=== PATIENT | male | born 1985 | race Caucasian/White ===

== ENCOUNTER 2021-12-17 16:37 | Inpatient (IN) | payer BC, SELFPAY ==
[2021-12-17] VITALS (39 sets, daily range): BP systolic 129–250; BP diastolic 93–174; PULSE 76–102; RESP 16–18; TEMP 36.3–36.8; O2SAT 94–99; BMI 34.5; BMI 34.7
--- NOTE | 2021-12-17 17:03 | ED.GENADULT ---
HPI - General Adult General Time Seen by Provider: 17:04 Date Seen: 12/17/21 Chief complaint: Eye Problems Stated complaint: Blurry Vision Time Seen by Provider: 12/17/21 17:01 Source: patient, RN notes reviewed and other (Records from caustic liquor maker reviewed) Mode of arrival: ambulatory Limitations: no limitations History of Present Illness HPI narrative: Yung is a very pleasant 36-year-old gentleman coming in to the ER with concerns of a hemorrhages seen at an optometry visit. He did a virtual optometry visit. He states there was a person there that takes the test and then the caustic liquor maker online reviews the images. He has been having blurry vision for about a month. He states that he can still read but things are just fuzzy and somewhat out of focus. He believes his left eye is worse than his right. He maybe had some occasional headaches. No double vision. Arms and legs have been working normally, no other neurologic changes. Does note that he feels like his heart is beating heavy at times but no chest pain. No shortness of breath. No noted edema. 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 He states there is high blood pressure in the family, grandmother with diabetes. He has been urinating more frequently. Cannot give me any other specific physical symptoms. Related Data Home Medications Medication Instructions Recorded Confirmed No Known Home Medications 12/17/21 12/17/21 Allergies Allergy/AdvReac Type Severity Reaction Status Date / Time No Known Drug Allergies Allergy Verified 12/17/21 16:52 Review of Systems Status of ROS: Reports: 10 or more systems reviewed and unremarkable except as noted in History and below Exam Const: Vital Signs, click to edit/add: Vital Signs - 24 hr 12/17/21 16:42 12/17/21 17:18 12/17/21 17:21 Temperature 98.3 F Pulse Rate Pulse Rate [Right Pulse Oximeter] 102 H 95 92 Respiratory Rate 16 16 Blood Pressure Blood Pressure [Ri ght Upper Arm] 250/164 H 250/174 H 233/167 H Pulse Oximetry 98 97 97 Oxygen Delivery Me thod Room Air Room Air Room Air 12/17/21 18:18 12/17/21 18:19 12/17/21 18:24 Temperature Pulse Rate 90 86 87 Pulse Rate [Right Pulse Oximeter] Respiratory Rate Blood Pressure 246/158 H 234/152 H Blood Pressure [Ri ght Upper Arm] Pulse Oximetry 98 97 97 Oxygen Delivery Me thod 12/17/21 18:27 12/17/21 18:30 12/17/21 18:32 Temperature Pulse Rate 85 82 85 Pulse Rate [Right Pulse Oximeter] Respiratory Rate Blood Pressure 224/163 H 215/155 H Blood Pressure [Ri ght Upper Arm] Pulse Oximetry 94 96 95 Oxygen Delivery Me thod 12/17/21 18:33 12/17/21 18:42 12/17/21 18:45 Temperature Pulse Rate 82 83 84 Pulse Rate [Right Pulse Oximeter] Respiratory Rate Blood Pressure 196/136 H Blood Pressure [Ri ght Upper Arm] Pulse Oximetry 97 95 98 Oxygen Delivery Me thod 12/17/21 18:52 12/17/21 18:57 12/17/21 19:00 Temperature Pulse Rate 83 84 82 Pulse Rate [Right Pulse Oximeter] Respiratory Rate Blood Pressure 184/123 H 129/93 H Blood Pressure [Ri ght Upper Arm] Pulse Oximetry 94 99 99 Oxygen Delivery Me thod 12/17/21 19:01 12/17/21 19:02 12/17/21 19:12 Temperature Pulse Rate 81 76 88 Pulse Rate [Right Pulse Oximeter] Respiratory Rate Blood Pressure 133/98 H 148/109 H Blood Pressure [Ri ght Upper Arm] Pulse Oximetry 99 98 99 Oxygen Delivery Me thod 12/17/21 19:15 12/17/21 19:30 12/17/21 19:33 Temperature Pulse Rate 89 86 83 Pulse Rate [Right Pulse Oximeter] Respiratory Rate Blood Pressure 238/156 H Blood Pressure [Ri ght Upper Arm] Pulse Oximetry 97 96 97 Oxygen Delivery Me thod 12/17/21 19:42 12/17/21 19:43 12/17/21 19:45 Temperature Pulse Rate 90 88 87 Pulse Rate [Right Pulse Oximeter] Respiratory Rate Blood Pressure 225/160 H Blood Pressure [Ri ght Upper Arm] Pulse Oximetry 97 97 98 Oxygen Delivery Me thod Documenting provider has reviewed patient's vital signs: yes Common normals: no apparent distress, oriented x3, no limitations, healthy appearing, alert and well nourished General appearance: cooperative, comfortable and well kempt Nutritional appearance: overweight HENMT: Common normals: normocephalic, head/scalp atraumatic, hearing grossly normal bilaterally, external ears normal, EAC's normal, TM's normal bilaterally, external nose normal, nasal mucous membranes and turbinates normal, moist oral mucous membranes, oropharynx normal, dentition normal and gingiva normal Head and scalp: normocephalic and atraumatic Nose: external nose normal and nasal mucous membranes and turbinates normal External ear: external ears normal External auditory canal: EAC's normal Tympanic membrane: TM's normal bilaterally Eye: Common normals: PERRL, EOMs intact bilaterally, conjunctivae normal, no scleral icterus and normal visual rodgers by confrontation Conjunctiva: conjunctiva(e) normal Pupil: PERRL Neck & C-Spine: Common normals: full ROM, no lymphadenopathy, supple, no meningeal signs, no JVD and thyroid normal Thyroid: thyroid normal Resp: Common normals: normal respiratory effort, no retractions, no use of accessory muscles and clear to auscultation bilaterally Auscultation: clear to auscultation bilaterally Cardio: Common normals: no JVD, regular rate, regular rhythm, S1 normal heart sound, S2 normal heart sound, no gallops, no clicks and no murmurs Rate: regular rate Rhythm: regular rhythm Heart sounds: S1 normal and S2 normal GI: Common normals: Normal to inspection, nondistended, normoactive bowel sounds present, soft to palpation, non-tender and no hepatosplenomegaly Palpation: soft and no hepatosplenomegaly Neuro: Common normals: oriented x3, CN's II-XII intact bilaterally, moves all extremities, no focal motor deficits, no sensory deficits noted and gait normal Sensorium/orientation: alert Meningeal signs: no meningeal signs Speech: speech normal Psych: Appearance: well kempt Course Course Hospital Course: First, will have nursing staff recheck his blood pressure. He states he is not feeling stressed but did review with him that there certainly can be a component of elevation when we see patients in the ER. I do request that we work up his high blood pressure and he is in agreement. We will get an EKG, appropriate labs with comprehensive metabolic panel, CBC, urinalysis. His eye symptoms are bilateral and are not neurologic in nature so to speak. Will try to talk to the on-call caustic liquor maker briefly. Reevaluation(s) Reevaluation #1: Recheck blood pressure maintains high at 233/167. Thus, am going to initiate IV labetalol 5 mg. Will await his workup. Time: 17:33 Reevaluation #2: Did order a 2nd dose of labetalol 5 mg IV as blood pressure is still 230/160 range. Time: 18:36 Reevaluation #3: Blood pressure is rebounded back up, 238/156 at 7:30 a.m., 225/160 at 7:39 p.m.. Will initiate 10 mg oral hydralazine and give 2.5 mg IV labetalol. Have confirmed this with the hospitalist Dr. Young whom will be accepting care. Time: 19:43 Consultations Consultation #1: Reviewed case with the on-call caustic liquor maker with [facility]. She stated the hemorrhages described in the virtual note are nearly pathognomonic for eye diabetic symptoms. Thus, not only with will I obtain his glucose but will also do a lab add on for hemoglobin A1c. She has taken down his contact information and they will get him scheduled outpatient for follow-up. Time: 17:30 Consultation #2: Called [facility] and spoke with triage nurse [place]. She page nephrology for consultation for me. Spoke with Dr. Chavis from Nephrology at 6:47 p.m.. Reviewed the case. He agrees that this is likely renal cause, secondary hypertension but patient has end-organ damage. He felt the patient should probably be admitted to the ICU for IV drip control of his blood pressure. [place] then paged the critical care officer of the day Dr. De Dios. I spoke with him at 7:06 p.m.. At that time, about 15 minutes after the 2nd IV dose of 5 mg labetalol, blood pressure was 129/93 and 133/98, learned this while I was on the phone with the barrel brander. Knowing the blood pressure came down quite significantly, he feels that the patient should be admitted to the floor here. We did review the elevated creatinine, proteinuria and elevated troponin. I will be getting a 2nd troponin and EKG here. He recommended a goal of systolic less than 180. Oral medicines can be initiated he would consider hydralazine and beta-qi. Obviously patient is going to need outpatient nephrology workup. If we are having problems with this patient or blood pressures becoming problematic we are to call them back. We have ultrasound in this evening and thus will do the renal ultrasound tonight. Patient understands he may need an echo tomorrow. I have subsequently ordered a screening COVID as well as a portable chest x-ray. His mom was with him when I went to explain all of this. This is certainly a lot for them to take in. I reviewed with them that we really need to have him see Nephrology, reviewed with them to not expect that to happen quickly, it will probably be on the order of weeks. If it is quicker, that will be fortuitous. Tried to answer their questions and review everything is best I could. They understand he is coming into the hospital here and that nephrology will not be seen in our hospital here. Time: 18:38 Vital Signs Vital signs: Initial Vital Signs Temperature 98.3 F 12/17/21 16:42 Temperature Source Temporal Artery Scan 12/17/21 16:42 Pulse Rate 102 H 12/17/21 16:42 Respiratory Rate 16 12/17/21 16:42 Blood Pressure 250/164 H 12/17/21 16:42 Blood Pressure Mean 192 12/17/21 16:42 Blood Pressure Position Sitting 12/17/21 16:42 Pulse Oximetry 98 12/17/21 16:42 Oxygen Delivery Method 12/17/21 16:42 Vital Signs Temperature 98.3 F 12/17/21 16:42 Pulse Rate 102 H 12/17/21 16:42 Respiratory Rate 16 12/17/21 16:42 Blood Pressure 250/164 H 12/17/21 16:42 Pulse Oximetry 98 12/17/21 16:42 Oxygen Delivery Method 12/17/21 16:42 Temperature 98.3 F 12/17/21 16:42 Pulse Rate 87 12/17/21 19:45 Respiratory Rate 16 12/17/21 17:21 Blood Pressure 225/160 H 12/17/21 19:42 Pulse Oximetry 98 12/17/21 19:45 Oxygen Delivery Method 12/17/21 17:21 Medical Decision Making Medical Records Medical records reviewed: Yes I reviewed the patient's medical records Medical records narrative: Patient's outside optometry visit will be scanned in but his visual acuity OD 20/40 OS 20/30 he is noted to have disc edema and disc hemorrhage bilaterally, retinal hemorrhage and dot blot hemorrhage bilaterally. Please refer to the scanned in exam for full details. Lab Data Lab results reviewed: Yes I reviewed the patient's lab results Labs: Lab Results 12/17/21 12/17/21 12/17/21 Range/Units 17:42 18:00 18:00 WBC 8.81 (4.50-11.00) K/uL RBC 5.00 (4.30-5.90) m/uL Hgb 15.1 (13.5-17.5) gm/dL Hct 42.9 (37.0-53.0) % MCV 86 (80-100) fL MCH 30 (26-34) pg MCHC 35 (32-36) gm/dL RDW Coeff of Avril 12.6 (11.5-15.5) % Plt Count 228 (140-440) K/uL Neut % (Auto) 62.1 (42.0-72.0) % Lymph % (Auto) 29.3 (20-44) % Sabine % (Auto) 7.2 (0.0-11.0) % Eos % (Auto) 0.9 (0.0-7.0) % Baso % (Auto) 0.5 (0.0-3.0) % Neut # (Auto) 5.48 (1.7-7.0) K/uL Lymph # (Auto) 2.58 (0.90-2.90) K/uL Sabine # (Auto) 0.60 (0.00-0.90) K/UL Eos # (Auto) 0.08 (0.00-0.50) K/uL Baso # (Auto) 0.04 (0.00-0.30) K/uL Abs Immat Gran (auto) 0.00 (0.00-0.30) K/uL Sodium 139 (135-149) mmol/L Potassium 3.9 (3.6-5.1) mmol/L Chloride 104 (96-114) mmol/L Carbon Dioxide 27 (20-32) mmol/L BUN 24 (5-24) mg/dL Creatinine 2.0 H (0.5-1.5) mg/dL Estimated Creat Clear 47.74 Estimated GFR 44 ml/min Glucose 108 (60-115) mg/dL Hemoglobin A1c (0-5.6) % Calcium 9.3 (8.4-10.6) mg/dL Total Bilirubin 0.6 (0.1-1.5) mg/dL AST 32 (12-35) U/L ALT 30 (4-50) U/L Alkaline Phosphatase 73 (40-150) U/L Troponin I 0.05 H (0.01-0.04) ng/mL Total Protein 7.7 (6.0-8.3) g/dL Albumin 4.9 (3.3-5.0) g/dL Urine Color Yellow (Yellow) Urine Appearance Clear (Clear) Urine pH 6.0 (5.0-8.5) Ur Specific [place] >= 1.030 (1.000-1.030) Urine Protein 3+ A (Negative) Urine Glucose (UA) Negative (Negative) Urine Ketones Negative (Negative) Urine Blood Trace-lysed A (Negative) Urine Nitrite Negative (Negative) Urine Bilirubin Negative (Negative) Urine Urobilinogen 0.2 (0.2-1.0) Ur Leukocyte Esterase Negative (Negative) Urine RBC 0-2 (0-2) Urine WBC 0-2 (0-5) Ur Squamous Epith Cells None (None-Few) Urine Bacteria None (None) Fine Granular Casts Few A (None) 12/17/21 12/17/21 Range/Units 18:00 19:37 WBC (4.50-11.00) K/uL RBC (4.30-5.90) m/uL Hgb (13.5-17.5) gm/dL Hct (37.0-53.0) % MCV (80-100) fL MCH (26-34) pg MCHC (32-36) gm/dL RDW Coeff of Avril (11.5-15.5) % Plt Count (140-440) K/uL Neut % (Auto) (42.0-72.0) % Lymph % (Auto) (20-44) % Sabine % (Auto) (0.0-11.0) % Eos % (Auto) (0.0-7.0) % Baso % (Auto) (0.0-3.0) % Neut # (Auto) (1.7-7.0) K/uL Lymph # (Auto) (0.90-2.90) K/uL Sabine # (Auto) (0.00-0.90) K/UL Eos # (Auto) (0.00-0.50) K/uL Baso # (Auto) (0.00-0.30) K/uL Abs Immat Gran (auto) (0.00-0.30) K/uL Sodium (135-149) mmol/L Potassium (3.6-5.1) mmol/L Chloride (96-114) mmol/L Carbon Dioxide (20-32) mmol/L BUN (5-24) mg/dL Creatinine (0.5-1.5) mg/dL Estimated Creat Clear Estimated GFR ml/min Glucose (60-115) mg/dL Hemoglobin A1c 5.31 (0-5.6) % Calcium (8.4-10.6) mg/dL Total Bilirubin (0.1-1.5) mg/dL AST (12-35) U/L ALT (4-50) U/L Alkaline Phosphatase (40-150) U/L Troponin I 0.06 H* (0.01-0.04) ng/mL Total Protein (6.0-8.3) g/dL Albumin (3.3-5.0) g/dL Urine Color (Yellow) Urine Appearance (Clear) Urine pH (5.0-8.5) Ur Specific [place] (1.000-1.030) Urine Protein (Negative) Urine Glucose (UA) (Negative) Urine Ketones (Negative) Urine Blood (Negative) Urine Nitrite (Negative) Urine Bilirubin (Negative) Urine Urobilinogen (0.2-1.0) Ur Leukocyte Esterase (Negative) Urine RBC (0-2) Urine WBC (0-5) Ur Squamous Epith Cells (None-Few) Urine Bacteria (None) Fine Granular Casts (None) ECG Data Attestation: I personally reviewed and interpreted this ECG as follows: (Sinus rhythm, 100 beats per minute, prolonged QT of 500 milliseconds. Left atrial enlargement based on the 1 with inverted P wave.) Prior ECG tracings: not available for review Interpretation: EKG timed 1926 showing normal sinus rhythm, 87 beats per minute, left atrial enlargement., QT at 464 milliseconds. No definitive ischemic change. Critical Care Time Critical Care Time Critical Care Time: Yes Attestation: The patient required my highest level preparedness to intervene emergently and I personally spent this critical care time directly and personally managing the patient. This critical care time included: Obtaining a history; Examining the patient; Pulse oximetry; Ordering and reviewing of studies; Arranging urgent treatment with development of a management plan; Evaluation of patients response to treatment; Frequent reassessment discussions with other providers. This critical care time was performed to assess and manage the high probability of imminent life-threatening deterioration that could result in multiorgan failure. It was exclusive of separate billable procedures and treating other patients and teaching time. Total Critical Care Time in Minutes: 210 Discharge Plan Discharge Clinical Impression: Hypertensive emergency without congestive heart failure, Creatinine elevation, Elevated troponin I level, Proteinuria Patient Disposition: Admitted As Inpatient Condition: Improved Prescriptions: No Action No Known Home Medications
[2021-12-17 17:46] LABS: Appearance Urine Clear (Clear); Bilirubin Urine Negative (Negative); Blood Urine Trace-lysed (Negative); Color Urine Yellow (Yellow); Glucose Urine Negative (Negative); Ketones Urine Negative (Negative); Leukocyte Esterase Urine Negative (Negative); Nitrite Urine Negative (Negative); Protein Urine 3+ (Negative); Specific Gravity Urine >= 1.030 (1.000-1.030); Urobilinogen Urine 0.2 (0.2-1.0)
[2021-12-17 17:54] LABS: Fine Granular Casts Urine Few; RBC Urine 0-2 (0-2); WBC Urine 0-2 (0-5)
[2021-12-17 18:06] LABS: Basophils Absolute Auto 0.04 K/uL (0.00-0.30); Basophils Percent Auto 0.5 % (0.0-3.0); Eosinophils Absolute Auto 0.08 K/uL (0.00-0.50); Eosinophils Percent Auto 0.9 % (0.0-7.0); Hematocrit 42.9 % (37.0-53.0); Hemoglobin* 15.1 gm/dL (13.5-17.5); Lymphocytes Absolute Auto 2.58 K/uL (0.90-2.90); Lymphocytes Percent Auto 29.3 % (20-44); Mean Corpuscular HGB Conc 35 gm/dL (32-36); Mean Corpuscular Hemoglobin 30 pg (26-34); Mean Corpuscular Volume 86 fL (80-100); Monocytes Percent Auto 7.2 % (0.0-11.0); Neutrophils Absolute Auto 5.48 K/uL (1.7-7.0); Neutrophils Percent Auto 62.1 % (42.0-72.0); Platelet Count* 228 K/uL (140-440); RDW Coefficient of Variation % 12.6 % (11.5-15.5); Slide Review Reflex No; White Blood Count* 8.81 K/uL (4.50-11.00)
[2021-12-17] MEDS: LABETALOL HCL 5 MG/ML inj IVP ×2 (18:11→18:44)
[2021-12-17 18:18] LABS: Albumin* 4.9 g/dL (3.3-5.0); Chloride* 104 mmol/L (96-114)
[2021-12-17 18:19] LABS: Potassium* 3.9 mmol/L (3.6-5.1); Sodium* 139 mmol/L (135-149)
[2021-12-17 18:21] LABS: Alanine Aminotransferase* 30 U/L (4-50); Alkaline Phosphatase* 73 U/L (40-150); Aspartate Amino Transferase* 32 U/L (12-35); Bilirubin Total* 0.6 mg/dL (0.1-1.5); Blood Urea Nitrogen* 24 mg/dL (5-24); Carbon Dioxide* 27 mmol/L (20-32); Est. Creatinine Clearance* 47.74; Estimated Glomerular Filt Rate 44 ml/min; Glucose* 108 mg/dL (60-115); Total Protein* 7.7 g/dL (6.0-8.3)
[2021-12-17 18:22] LABS: Calcium* 9.3 mg/dL (8.4-10.6)
[2021-12-17 18:34] LABS: Troponin I* 0.05 ng/mL (0.01-0.04)
[2021-12-17 18:44] LABS: Hemoglobin A1C* 5.31 % (0-5.6)
--- NOTE | 2021-12-17 19:33 | CRLHL7_ITS ---
For Patients: As a result of the Cures Act, medical imaging exams and procedure reports are released immediately into your electronic medical record. You may view this report before your referring provider. If you have questions, please contact your health care provider. INDICATION: Hypertension with and organ damage. TECHNIQUE: Chest 1 view(s) COMPARISON: None. FINDINGS: Cardiomediastinal silhouette and pulmonary vasculature are normal. No focal consolidation. No significant layering pleural effusion, no definite pneumothorax. No acute chest wall abnormality. IMPRESSION: No focal consolidation. Dictated by Andrea Mclean MD @ 12/17/2021 9:14:38 PM (Electronically Signed)
--- NOTE | 2021-12-17 19:45 | CRLHL7_ITS ---
For Patients: As a result of the Century Cures Act, medical imaging exams and procedure reports are released immediately into your electronic medical record. You may view this report before your referring provider. If you have questions, please contact your health care provider. INDICATION: Elevated creatinine. TECHNIQUE: Ultrasound renal and bladder complete. Warren-scale and color Doppler sonographic images were acquired of the kidneys and urinary bladder. COMPARISON: None. FINDINGS: Right kidney: 9.5 cm. Left kidney: 10.3 cm. Normal echotexture and cortex. No suspicious masses, stones, or hydronephrosis. Bladder: Normal in caliber and appearance. Possible debris. Color Doppler images demonstrate bilateral ureteral jets. IMPRESSION: No renal stones or hydronephrosis, as questioned. Possible debris in the bladder which can be seen in urinary tract infection. Recommend correlation with urinalysis. Dictated by Rodney Mistry MD @ 12/17/2021 9:33:02 PM (Electronically Signed)
[2021-12-17 20:10] LABS: Troponin I* 0.06 ng/mL (0.01-0.04)
[2021-12-17] MEDS: LABETALOL HCL 5 MG/ML inj 2.5 MG IVP (20:15)
[2021-12-17] MEDS: HYDRALAZINE 10 MG TABLET PO (20:15)
[2021-12-17 20:20] LABS: SARS PCR* Negative SARS-CoV-2 (Negative)
--- NOTE | 2021-12-17 20:25 | W.PC.EDHO ---
Primary Language: Bulgarian Preferred Language: Orientation Status: [x] Alert & Oriented [] Slight Confusion [] Known Dx Dementia Transfers By: [x] Assist of 1 [] Assist of 2 [] Lift Active Medications Discontinued Medications Generic Name Dose Route Start Last Admin Trade Name Merry PRN Reason Stop Dose Admin Hydralazine HCl 10 mg 12/17/21 19:42 12/17/21 20:15 Hydralazine 10 Mg Tablet PO 12/17/21 19:43 10 mg ONCE ONE Administration Labetalol HCl 5 mg 12/17/21 17:28 12/17/21 18:11 Labetalol Hcl 5 Mg/Ml Inj IVP 12/17/21 17:29 5 mg ONCE ONE Administration Labetalol HCl 5 mg 12/17/21 18:36 12/17/21 18:44 Labetalol Hcl 5 Mg/Ml Inj IVP 12/17/21 18:37 5 mg ONCE ONE Administration Labetalol HCl 2.5 mg 12/17/21 19:40 12/17/21 20:15 Labetalol Hcl 5 Mg/Ml Inj IVP 12/17/21 19:41 2.5 mg ONCE ONE Administration Description of Symptoms ED Triage Present Problem patient went to the eye MD and discovered a Description hemorrhage in one of the eyes, blurred vision patient stated out of both. 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 ED Triage Date of Onset of 12/17/21 Symptoms Pain Pain Description [Upper Eye] Acute Pain Intensity [Upper Eye] 4 Pain Scale Used [Upper Eye] Numeric (1 - 10) IV Insertion/Site Date of IV Line Insertion [ 12/17/21 Right Hand] Oxygen Administration Pulse Oximetry 98 Pulse Oximetry 97 Pulse Oximetry 97 Pulse Oximetry 97 Pulse Oximetry 96 Pulse Oximetry 97 Pulse Oximetry 99 Pulse Oximetry 98 Pulse Oximetry 99 Pulse Oximetry 99 Pulse Oximetry 99 Pulse Oximetry 94 Pulse Oximetry 98 Pulse Oximetry 95 Pulse Oximetry 97 Pulse Oximetry 95 Pulse Oximetry 96 Pulse Oximetry 94 Pulse Oximetry 97 Pulse Oximetry 97 Pulse Oximetry 98 Pulse Oximetry 97 Pulse Oximetry 97 Pulse Oximetry 98 Oxygen Delivery Method Room Air Oxygen Delivery Method Room Air Oxygen Delivery Method Room Air Cardiac Monitoring EKG Method 12 Lead EKG Method 12 Lead
--- NOTE | 2021-12-17 21:03 | PM.IMHP1 ---
Hospitalist- H&P: HPI History of Present Illness Date Seen: 12/17/21 Chief complaint: Blurry Vision Narrative: Yung Law is a 36 year old male presenting for evaluation of hypertensive urgency. The patient states he has history of HTN but not on antihypertensives. He presented to ED today for evaluation of headache and blurry vision. He was seen by Optometry earlier and noted to have possible retinal hemorrhage. He denied chest pain, sob, nausea, vomiting, abdominal pain. Denies illicit drug use. In the ED his SBP was noted to be in 250s. ED workup revealed: EKG showed NSR, initial trop 0.05, repeat 0.06. Notable labs included Cr 2.0. Renal US showed No renal stones or hydronephrosis, as questioned. Possible debris in the bladder which can be seen in urinary tract infection. Recommend correlation with urinalysis. CXR showed no acute findings. His case was discussed with Nephrology. He was started on hydralazine and labetalol and admitted for further evaluation. The patient endorses 3-4 beers per night. He denies use of NSAIDs. PMHx Patient Active Problem List Diagnoses Code ? ADD (Attention Deficit Disorder) 314.00R ? PAST MEDICAL HISTORY:Past Medical History Diagnosis Date ? ADD (Attention Deficit Disorder) 04/16/2008 ? ? Last treated in 2002 ? ? SURGICAL HISTORY: Past Surgical History Procedure Date ? No previous surgery ? SOCIAL HISTORY:History Social History ? Marital Status: Single ? ? Spouse Name: N/A ? ? Number of Children: 0 ? 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 Social History Main Topics ? Smoking status: Never Smoker ? Smokeless tobacco: Never Used ? Alcohol Use: 2.5 oz/week ? ? 5 drink(s) per week ? Drug Use: No ? Sexually Active: Yes -- Female partner(s) Other Topics Concern ? Service No ? Blood Transfusions No ? Caffeine Concern No ? Occupational Exposure No ? Hobby Hazards No ? Sleep Concern Yes ? Stress Concern No ? Special Diet No ? Back Care No ? Exercise Yes ? ? jogging 2 miles 3x weekly, wts ? Seat Belt Yes Social History Narrative ? No narrative on file ? FAMILY HISTORY:Family History Problem Relation Age of Onset ? Good Health Mother ? ? Good Health Father ? ? Good Health Sister ? ? Heart Disease Paternal Grandfather ? ? Stroke Maternal Grandfather ? ? Review of Systems Status of ROS: Reports: 10 or more systems reviewed and unremarkable except as noted in History and below PFSH PFSH Social History Highest level of school completed/degree received: high school graduate Smoking Status: Never smoker Do you use any of these nicotine containing products: None Second hand tobacco smoke exposure: No How often do you have a drink containing alcohol: 4 or more times a week Alcohol type: beer How many standard drinks containing alcohol do you have on a typical day: 3 or 4 How often do you have six or more drinks on one occasion: Less than monthly AUDIT-C Alcohol total score: 6 Non-prescribed substance use: denies use Caffeine: Yes (20 oz coffee) service: No Meds Home Medications and Allergies Home Medications Medication Instructions Recorded Confirmed Type No Known Home Medications 12/17/21 12/17/21 History Allergies Allergy/AdvReac Type Severity Reaction Status Date / Time No Known Drug Allergies Allergy Verified 12/17/21 16:52 Exam Narrative: Exam Narrative: Gen: No acute distress HEENT: NCAT EOMI MMM Neck: Supple CV: Tachycardic; normal s1 s2 LCTAB Abd: soft, nt, nd Neuro: AOX3, CN grossly intact, MSK: age appropriate muscle mass Skin: warm, dry no rash on face Const: Vital Signs, click to edit/add: Vital Signs - 24 hr 12/17/21 16:42 12/17/21 17:18 12/17/21 17:21 Temperature 98.3 F Pulse Rate Pulse Rate [Right Pulse Oximeter] 102 H 95 92 Respiratory Rate 16 16 Blood Pressure Blood Pressure [Ri ght Upper Arm] 250/164 H 250/174 H 233/167 H Pulse Oximetry 98 97 97 Oxygen Delivery Me thod Room Air Room Air Room Air 12/17/21 18:18 12/17/21 18:19 12/17/21 18:24 Temperature Pulse Rate 90 86 87 Pulse Rate [Right Pulse Oximeter] Respiratory Rate Blood Pressure 246/158 H 234/152 H Blood Pressure [Ri ght Upper Arm] Pulse Oximetry 98 97 97 Oxygen Delivery Me thod 12/17/21 18:27 12/17/21 18:30 12/17/21 18:32 Temperature Pulse Rate 85 82 85 Pulse Rate [Right Pulse Oximeter] Respiratory Rate Blood Pressure 224/163 H 215/155 H Blood Pressure [Ri ght Upper Arm] Pulse Oximetry 94 96 95 Oxygen Delivery Me thod 12/17/21 18:33 12/17/21 18:42 12/17/21 18:45 Temperature Pulse Rate 82 83 84 Pulse Rate [Right Pulse Oximeter] Respiratory Rate Blood Pressure 196/136 H Blood Pressure [Ri ght Upper Arm] Pulse Oximetry 97 95 98 Oxygen Delivery Me thod 12/17/21 18:52 12/17/21 18:57 12/17/21 19:00 Temperature Pulse Rate 83 84 82 Pulse Rate [Right Pulse Oximeter] Respiratory Rate Blood Pressure 184/123 H 129/93 H Blood Pressure [Ri ght Upper Arm] Pulse Oximetry 94 99 99 Oxygen Delivery Me thod 12/17/21 19:01 12/17/21 19:02 12/17/21 19:12 Temperature Pulse Rate 81 76 88 Pulse Rate [Right Pulse Oximeter] Respiratory Rate Blood Pressure 133/98 H 148/109 H Blood Pressure [Ri ght Upper Arm] Pulse Oximetry 99 98 99 Oxygen Delivery Me thod 12/17/21 19:15 12/17/21 19:30 12/17/21 19:33 Temperature Pulse Rate 89 86 83 Pulse Rate [Right Pulse Oximeter] Respiratory Rate Blood Pressure 238/156 H Blood Pressure [Ri ght Upper Arm] Pulse Oximetry 97 96 97 Oxygen Delivery Me thod 12/17/21 19:42 12/17/21 19:43 12/17/21 19:45 Temperature Pulse Rate 90 88 87 Pulse Rate [Right Pulse Oximeter] Respiratory Rate Blood Pressure 225/160 H Blood Pressure [Ri ght Upper Arm] Pulse Oximetry 97 97 98 Oxygen Delivery Me thod 12/17/21 20:00 12/17/21 20:03 12/17/21 20:15 Temperature Pulse Rate 86 84 85 Pulse Rate [Right Pulse Oximeter] Respiratory Rate Blood Pressure 207/134 H Blood Pressure [Ri ght Upper Arm] Pulse Oximetry 97 96 98 Oxygen Delivery Me thod 12/17/21 20:30 12/17/21 20:32 12/17/21 20:33 Temperature Pulse Rate 85 82 85 Pulse Rate [Right Pulse Oximeter] Respiratory Rate Blood Pressure 208/130 H Blood Pressure [Ri ght Upper Arm] Pulse Oximetry 96 97 97 Oxygen Delivery Me thod 12/17/21 20:45 12/17/21 20:47 Temperature Pulse Rate 83 83 Pulse Rate [Right Pulse Oximeter] Respiratory Rate Blood Pressure 210/154 H Blood Pressure [Ri ght Upper Arm] Pulse Oximetry 94 98 Oxygen Delivery [facility] Hospitalist - H&P: Result Labs Labs: Short CBC 12/17/21 Range/Units 18:00 WBC 8.81 (4.50-11.00) K/uL Hgb 15.1 (13.5-17.5) gm/dL Hct 42.9 (37.0-53.0) % Plt Count 228 (140-440) K/uL BMP 12/17/21 18:00 Sodium 139 Potassium 3.9 Chloride 104 Carbon Dioxide 27 BUN 24 Creatinine 2.0 H Glucose 108 Calcium 9.3 Cardiac Enzymes 12/17/21 12/17/21 Range/Units 18:00 19:37 Troponin I 0.05 H 0.06 H* (0.01-0.04) ng/mL Liver Function 12/17/21 Range/Units 18:00 Total Bilirubin 0.6 (0.1-1.5) mg/dL AST 32 (12-35) U/L ALT 30 (4-50) U/L Alkaline Phosphatase 73 (40-150) U/L Albumin 4.9 (3.3-5.0) g/dL Urine 12/17/21 Range/Units 17:42 Urine Color Yellow (Yellow) Urine Appearance Clear (Clear) Urine pH 6.0 (5.0-8.5) Ur Specific [place] >= 1.030 (1.000-1.030) Urine Protein 3+ A (Negative) Urine Glucose (UA) Negative (Negative) Assessment and Plan Assessment and plan (1) Hypertensive emergency without congestive heart failure: Status: Acute (2) Creatinine elevation: Status: Acute (3) Elevated troponin I level: Status: Acute (4) Proteinuria: Status: Acute Plan 36M presenting with Hypertensive urgency with SBP 250s. ED workup: EKG showed NSR, initial trop 0.05, repeat 0.06. Notable labs included Cr 2.0. Renal US showed No renal stones or hydronephrosis, as questioned. Possible debris in the bladder which can be seen in urinary tract infection. Recommend correlation with urinalysis. CXR showed no acute findings. His case was discussed with Nephrology. He was started on hydralazine and labetalol and admitted for further evaluation. The patient endorses 3-4 beers per night. He denies use of NSAIDs. 1. Hypertensive urgency 2. Acute renal failure with suspected underlying CKD 3. Proteinuria 4. elevated troponin in context of ARF and hypertensive urgency Plan -admit to inpatient -goal SBP 160-90 -start coreg -start norvasc -IVF -avoid nephrotoxic agents -Echo in AM -TSH, CBC, BMP in AM -Outpatient Nephrology referral -if BP still elevated start nicardipine infusion Code-Full DVT ppx; low risk ambulate TID
[2021-12-17] MEDS: 0.9 % SODIUM CHLORIDE 1000 ml 1,000 ML 125 ML IV (21:29)
[2021-12-17] MEDS: carvediloL 6.25 MG TABLET PO (21:29)
[2021-12-17] MEDS: AMLODIPINE 10 MG TABLET PO (21:59)
--- NOTE | 2021-12-17 23:35 | PC.NURSE ---
Patient admitted to CCU2 appox 2104. Patient pleasant and cooperative. Afebrile. Denies pain, headache or dizziness. BP 234/149, MD in to see patient. Meds as ordered. Tele showing NSR.
[2021-12-18] VITALS (74 sets, daily range): BP systolic 139–215; BP diastolic 84–136; PULSE 71–102; RESP 16–18; TEMP 36.2–36.7; O2SAT 92–99
[2021-12-18] MEDS: 0.9 % SODIUM CHLORIDE 1000 ml 1,000 ML 125 ML IV (03:11)
[2021-12-18] MEDS: HYDRALAZINE HCL 20 MG/ML inj 10 MG IVP ×2 (03:11→10:26)
[2021-12-18] MEDS: ACETAMINOPHEN 500 MG TABLET PO ×2 (06:48→15:38)
--- NOTE | 2021-12-18 06:58 | PC.NURSE ---
Shift note: SBP overnight over 200, RN treated per eMAR X1, SBP 180ies for the rest of the shift. Pt c/o head ache in AM, Tylenol administered.
--- NOTE | 2021-12-18 07:26 | PM.IMPN1 ---
Progress Note: A&P Assessment and plan (1) Hypertensive emergency without congestive heart failure: Status: Acute Assessment and Plan: - TTE performed, LV EF 55-60% + LVH per tech, formal Cardiology read pending - Nutritional consult - given acute nausea and vomiting after TTE, head CT and head/neck CTA obtained; reassuring - Current medications include Amlodipine and Coreg with prn IV Hydralazine ordered - nicardipine drip ordered, pending blood pressure control. Goal SBP <160 (2) Creatinine elevation: Status: Acute Assessment and Plan: - improvement after IV fluid hydration, continue to follow. Will need outpatient Nephrology consult (3) Elevated troponin I level: Status: Acute Assessment and Plan: - now within normal limits, peaked at 0.06 (4) Proteinuria: Status: Acute (5) Vision changes: Status: Acute Assessment and Plan: - f/u with Design/Animation Instructor at [facility] Plan - per above, anticipate at least one more day of inpatient status - ASA, SCDs, ambulation for ppx - mother updated by phone, questions answered Subjective Date Seen: 12/18/21 Interval history: No acute events overnight. Vision better today. No CP or dyspnea. Had an episode of nausea/vomiting after TTE, BP at that time was 222/132. Exam Narrative: Exam Narrative: GEN: Alert and oriented, speaking in full sentences HEENT: Normal external ears, EOMIs bilaterally, no scleral icterus CV: RRR, No concerning murmurs, rubs, or gallops R: LCTA bilaterally without concerning wheezing, rales, or rhonchi Ext: wwp, no concerning edema Skin: No concerning skin lesions or rashes on exposed skin Neuro: No focal deficits, no resting tremor Psych: Appropriate Const: Vital Signs, click to edit/add: Vital Signs - 24 hr 12/17/21 16:42 12/17/21 17:18 12/17/21 17:21 Temperature 98.3 F Pulse Rate Pulse Rate [Left P ulse Oximeter] Pulse Rate [Right Pulse Oximeter] 102 H 95 92 Respiratory Rate 16 16 Blood Pressure Blood Pressure [Le ft Arm] Blood Pressure [Ri ght Upper Arm] 250/164 H 250/174 H 233/167 H Pulse Oximetry 98 97 97 Oxygen Delivery Me thod Room Air Room Air Room Air 12/17/21 18:18 12/17/21 18:19 12/17/21 18:24 Temperature Pulse Rate 90 86 87 Pulse Rate [Left P ulse Oximeter] Pulse Rate [Right Pulse Oximeter] Respiratory Rate Blood Pressure 246/158 H 234/152 H Blood Pressure [Le ft Arm] Blood Pressure [Ri ght Upper Arm] Pulse Oximetry 98 97 97 Oxygen Delivery Me thod 12/17/21 18:27 12/17/21 18:30 12/17/21 18:32 Temperature Pulse Rate 85 82 85 Pulse Rate [Left P ulse Oximeter] Pulse Rate [Right Pulse Oximeter] Respiratory Rate Blood Pressure 224/163 H 215/155 H Blood Pressure [Le ft Arm] Blood Pressure [Ri ght Upper Arm] Pulse Oximetry 94 96 95 Oxygen Delivery Me thod 12/17/21 18:33 12/17/21 18:42 12/17/21 18:45 Temperature Pulse Rate 82 83 84 Pulse Rate [Left P ulse Oximeter] Pulse Rate [Right Pulse Oximeter] Respiratory Rate Blood Pressure 196/136 H Blood Pressure [Le ft Arm] Blood Pressure [Ri ght Upper Arm] Pulse Oximetry 97 95 98 Oxygen Delivery Me thod 12/17/21 18:52 12/17/21 18:57 12/17/21 19:00 Temperature Pulse Rate 83 84 82 Pulse Rate [Left P ulse Oximeter] Pulse Rate [Right Pulse Oximeter] Respiratory Rate Blood Pressure 184/123 H 129/93 H Blood Pressure [Le ft Arm] Blood Pressure [Ri ght Upper Arm] Pulse Oximetry 94 99 99 Oxygen Delivery Me thod 12/17/21 19:01 12/17/21 19:02 12/17/21 19:12 Temperature Pulse Rate 81 76 88 Pulse Rate [Left P ulse Oximeter] Pulse Rate [Right Pulse Oximeter] Respiratory Rate Blood Pressure 133/98 H 148/109 H Blood Pressure [Le ft Arm] Blood Pressure [Ri ght Upper Arm] Pulse Oximetry 99 98 99 Oxygen Delivery Me thod 12/17/21 19:15 12/17/21 19:30 12/17/21 19:33 Temperature Pulse Rate 89 86 83 Pulse Rate [Left P ulse Oximeter] Pulse Rate [Right Pulse Oximeter] Respiratory Rate Blood Pressure 238/156 H Blood Pressure [Le ft Arm] Blood Pressure [Ri ght Upper Arm] Pulse Oximetry 97 96 97 Oxygen Delivery Me thod 12/17/21 19:42 12/17/21 19:43 12/17/21 19:45 Temperature Pulse Rate 90 88 87 Pulse Rate [Left P ulse Oximeter] Pulse Rate [Right Pulse Oximeter] Respiratory Rate Blood Pressure 225/160 H Blood Pressure [Le ft Arm] Blood Pressure [Ri ght Upper Arm] Pulse Oximetry 97 97 98 Oxygen Delivery Me thod 12/17/21 20:00 12/17/21 20:03 12/17/21 20:15 Temperature Pulse Rate 86 84 85 Pulse Rate [Left P ulse Oximeter] Pulse Rate [Right Pulse Oximeter] Respiratory Rate Blood Pressure 207/134 H Blood Pressure [Le ft Arm] Blood Pressure [Ri ght Upper Arm] Pulse Oximetry 97 96 98 Oxygen Delivery Me thod 12/17/21 20:30 12/17/21 20:32 12/17/21 20:33 Temperature Pulse Rate 85 82 85 Pulse Rate [Left P ulse Oximeter] Pulse Rate [Right Pulse Oximeter] Respiratory Rate Blood Pressure 208/130 H Blood Pressure [Le ft Arm] Blood Pressure [Ri ght Upper Arm] Pulse Oximetry 96 97 97 Oxygen Delivery Me thod 12/17/21 20:45 12/17/21 20:47 12/17/21 21:15 Temperature 97.3 F L Pulse Rate 83 83 Pulse Rate [Left P ulse Oximeter] 84 Pulse Rate [Right Pulse Oximeter] Respiratory Rate 18 Blood Pressure 210/154 H Blood Pressure [Le ft Arm] 234/149 H Blood Pressure [Ri ght Upper Arm] Pulse Oximetry 94 98 97 Oxygen Delivery Me thod Room Air 12/17/21 20:48 12/17/21 21:40 12/17/21 22:00 Temperature Pulse Rate 95 86 Pulse Rate [Left P ulse Oximeter] 90 Pulse Rate [Right Pulse Oximeter] Respiratory Rate Blood Pressure Blood Pressure [Le ft Arm] 222/140 H Blood Pressure [Ri ght Upper Arm] Pulse Oximetry 96 Oxygen Delivery Me thod 12/17/21 22:55 12/17/21 23:25 12/17/21 23:00 Temperature 97.8 F Pulse Rate Pulse Rate [Left P ulse Oximeter] 82 81 Pulse Rate [Right Pulse Oximeter] Respiratory Rate 18 Blood Pressure Blood Pressure [Le ft Arm] 199/127 H 199/121 H Blood Pressure [Ri ght Upper Arm] Pulse Oximetry 97 97 Oxygen Delivery Me thod Room Air Room Air 12/17/21 23:00 12/18/21 03:00 12/18/21 04:00 Temperature 98 F Pulse Rate 83 Pulse Rate [Left P ulse Oximeter] 71 Pulse Rate [Right Pulse Oximeter] Respiratory Rate 16 Blood Pressure Blood Pressure [Le ft Arm] 202/131 H 182/123 H Blood Pressure [Ri ght Upper Arm] Pulse Oximetry 98 Oxygen Delivery Me thod Room Air Labs Labs: Laboratory Results - last 24 hr 12/17/21 12/17/21 12/17/21 17:42 18:00 18:00 WBC 8.81 RBC 5.00 Hgb 15.1 Hct 42.9 MCV 86 MCH 30 MCHC 35 RDW Coeff of [place]ril 12.6 Plt Count 228 Neut % (Auto) 62.1 Lymph % (Auto) 29.3 [place] % (Auto) 7.2 Eos % (Auto) 0.9 Baso % (Auto) 0.5 Neut # (Auto) 5.48 Lymph # (Auto) 2.58 [place] # (Auto) 0.60 Eos # (Auto) 0.08 Baso # (Auto) 0.04 Abs Immat Gran (auto) 0.00 Sodium 139 Potassium 3.9 Chloride 104 Carbon Dioxide 27 BUN 24 Creatinine 2.0 H Estimated Creat Clear 47.74 Estimated GFR 44 Glucose 108 Hemoglobin A1c Calcium 9.3 Total Bilirubin 0.6 AST 32 ALT 30 Alkaline Phosphatase 73 Troponin I 0.05 H Total Protein 7.7 Albumin 4.9 Urine Color Yellow Urine Appearance Clear Urine pH 6.0 Ur Specific [place] >= 1.030 Urine Protein 3+ A Urine Glucose (UA) Negative Urine Ketones Negative Urine Blood Trace-lysed A Urine Nitrite Negative Urine Bilirubin Negative Urine Urobilinogen 0.2 Ur Leukocyte Esterase Negative Urine RBC 0-2 Urine WBC 0-2 Ur Squamous Epith Cells None Urine Bacteria None Fine Granular Casts Few A SARS-CoV-2 (PCR) 12/17/21 12/17/21 12/17/21 18:00 19:06 19:37 WBC RBC Hgb Hct MCV MCH MCHC RDW Coeff of [place] Plt Count Neut % (Auto) Lymph % (Auto) [place] % (Auto) Eos % (Auto) Baso % (Auto) Neut # (Auto) Lymph # (Auto) [place] # (Auto) Eos # (Auto) Baso # (Auto) Abs Immat Gran (auto) Sodium Potassium Chloride Carbon Dioxide BUN Creatinine Estimated Creat Clear Estimated GFR Glucose Hemoglobin A1c 5.31 Calcium Total Bilirubin AST ALT Alkaline Phosphatase Troponin I 0.06 H* Total Protein Albumin Urine Color Urine Appearance Urine pH Ur Specific [place] Urine Protein Urine Glucose (UA) Urine Ketones Urine Blood Urine Nitrite Urine Bilirubin Urine Urobilinogen Ur Leukocyte Esterase Urine RBC Urine WBC Ur Squamous Epith Cells Urine Bacteria Fine Granular Casts SARS-CoV-2 (PCR) Negative SARS-CoV-2
[2021-12-18 08:06] LABS: Basophils Absolute Auto 0.03 K/uL (0.00-0.30); Basophils Percent Auto 0.3 % (0.0-3.0); Hematocrit 42.5 % (37.0-53.0); Hemoglobin* 14.8 gm/dL (13.5-17.5); Immature Granulocytes Abs Auto 0.01 K/uL (0.00-0.30); Mean Corpuscular HGB Conc 35 gm/dL (32-36); Mean Corpuscular Hemoglobin 30 pg (26-34); Mean Corpuscular Volume 86 fL (80-100); Monocytes Percent Auto 5.8 % (0.0-11.0); Neutrophils Percent Auto 74.8 % (42.0-72.0); Platelet Count* 238 K/uL (140-440); Red Blood Count 4.93 m/uL (4.30-5.90); White Blood Count* 10.35 K/uL (4.50-11.00)
[2021-12-18 08:09] LABS: Slide Review Reflex No
[2021-12-18 08:32] LABS: Troponin I* 0.04 ng/mL (0.01-0.04)
[2021-12-18 08:54] LABS: Chloride* 104 mmol/L (96-114); Sodium* 139 mmol/L (135-149)
[2021-12-18 08:55] LABS: Potassium* 3.4 mmol/L (3.6-5.1)
[2021-12-18 08:57] LABS: Carbon Dioxide* 25 mmol/L (20-32); Creatinine* 1.7 mg/dL (0.5-1.5); Est. Creatinine Clearance* 56.16; Estimated Glomerular Filt Rate 53 ml/min
[2021-12-18 08:58] LABS: Blood Urea Nitrogen* 20 mg/dL (5-24); Glucose* 113 mg/dL (60-115)
[2021-12-18] MEDS: AMLODIPINE 10 MG TABLET PO (09:07)
[2021-12-18] MEDS: carvediloL 6.25 MG TABLET PO (09:07)
--- NOTE | 2021-12-18 10:09 | NUTR.NU ---
RDN with MD consult for HTN diet education. RDN visited with patient whom agreed to diet education related to HTN. He reports he has been trying to cut back on his sodium intake recently, but has noticed certain meats such as hamburgers have increased his symptoms. Low sodium/DASH diet education provided. Discussed following a DASH diet using the plate method that includes ? plate non-starchy vegetables and fruit, ? plate whole grains/starch, ? plate healthy protein (fish, poultry, legumes, nuts/seeds), and healthy fats. Discussed limiting sodium intake and unhealthy fats (saturated and trans fats). Handouts provided to support discussion from AND NCM. RDN contact information provided and encouraged patient to call with questions. RDN to follow up as needed.
--- NOTE | 2021-12-18 12:00 | CRLHL7_ITS ---
For Patients: As a result of the Cures Act, medical imaging exams and procedure reports are released immediately into your electronic medical record. You may view this report before your referring provider. If you have questions, please contact your health care provider. CT ANGIOGRAM NECK DATE: 12/18/2021 CLINICAL HISTORY: Patient with vomiting and hypertension. TECHNIQUE: Standard helical CT image acquisition of the neck up to the skull base after bolus intravenous contrast enhancement. Multiplanar reconstructed images performed on a separate workstation. COMPARISON: None. FINDINGS: The origins of the great vessels from the aortic arch are patent. The origin of the right vertebral artery is patent. The origin of the left vertebral artery is patent. The common carotid arteries are patent. There is no stenosis at the origin of the right internal carotid artery. There is no stenosis at the origin of the left internal carotid artery. The rest of the cervical segments of the internal carotid arteries are patent up to the skull base. The right vertebral artery is dominant. The cervical segments of the vertebral arteries are patent up to the skull base. The visualized lung apices are unremarkable. The thyroid gland is unremarkable. The soft tissues of the neck are unremarkable. There are degenerative changes in the cervical spine. IMPRESSION: Normal CT angiogram of the neck. Please note that all CT scans at this facility use dose modulation, iterative reconstruction, and/or weight-based dosing when appropriate to reduce radiation dose to as low as reasonably achievable. Dictated by: Naty Pastrana MD @ 12/18/2021 13:41:45 (Electronically Signed)
--- NOTE | 2021-12-18 12:00 | CRLHL7_ITS ---
For Patients: As a result of the Cures Act, medical imaging exams and procedure reports are released immediately into your electronic medical record. You may view this report before your referring provider. If you have questions, please contact your health care provider. CT ANGIOGRAM HEAD DATE: 12/18/2021 CLINICAL HISTORY: Patient with vomiting and hypertension. TECHNIQUE: Standard helical CT image acquisition through the intracranial circulation following intravenous administration of contrast material with bolus tracking. Multiplanar reconstructed images were performed and interpreted. COMPARISON: CT same day. FINDINGS: There is no cerebral aneurysm or large vessel occlusion. The right internal carotid artery is normal. The right middle cerebral artery and its branches are normal. The right anterior cerebral artery and its branches are normal. The left internal carotid artery is normal. The left middle cerebral artery and its branches are normal. The left anterior cerebral artery and its branches are normal. The anterior communicating artery is well visualized and appears normal. The right vertebral artery and PICA are normal. The left vertebral artery and PICA are normal. The right vertebral artery is dominant. The basilar artery is patent and appears normal. The right posterior cerebral artery is normal. The left posterior cerebral artery is normal. The visualized venous structures are patent. IMPRESSION: Normal CT angiogram of the head without intracranial aneurysm or other neurovascular abnormality. Please note that all CT scans at this facility use dose modulation, iterative reconstruction, and/or weight-based dosing when appropriate to reduce radiation dose to as low as reasonably achievable. Dictated by: Naty Pastrana MD @ 12/18/2021 13:43:28 (Electronically Signed)
--- NOTE | 2021-12-18 12:01 | CRLHL7_ITS ---
For Patients: As a result of the Cures Act, medical imaging exams and procedure reports are released immediately into your electronic medical record. You may view this report before your referring provider. If you have questions, please contact your health care provider. CT HEAD DATE: 12/18/2021 CLINICAL HISTORY: Patient with vomiting and hypertension. TECHNIQUE: Standard CT scanning of the head was performed. COMPARISON: None. FINDINGS: There is no intracranial hemorrhage. The ya matter-white matter differentiation is intact. The size of the ventricular system is normal for age. There is no mass effect or midline shift. The calvarium is unremarkable. The orbits are unremarkable. The paranasal sinuses are unremarkable. The mastoid air cells are unremarkable. The soft tissues are unremarkable. IMPRESSION: Normal head CT. Please note that all CT scans at this facility use dose modulation, iterative reconstruction, and/or weight-based dosing when appropriate to reduce radiation dose to as low as reasonably achievable. Dictated by: Naty Pastrana MD @ 12/18/2021 13:40:00 (Electronically Signed)
[2021-12-18] MEDS: LABETALOL HCL 5 MG/ML inj IVP (12:17)
[2021-12-18] MEDS: LORazepam 2 MG/ML inj 0.5 MG IVP (12:37)
[2021-12-18] MEDS: ONDANSETRON 2 MG/ML inj 4 MG IVP (12:44)
[2021-12-18] MEDS: ASPIRIN 81 MG TAB.CHEW PO (15:37)
[2021-12-18] MEDS: NICARDIPINE HCL 25 MG in 0.9 % SODIUM CHLORIDE 250 ml 240 ML 50 MG IVPB (16:30)
--- NOTE | 2021-12-18 19:14 | PC.NURSE ---
End of shift-- Pleasant and cooperative, alert and oriented patient. Pt has been hypertensive today with B/Ps as high as 215/136. Pt was given scheduled B/P meds in addition to PRN Hydralazine and allowed to shower. Following shower pt became nauseas and had emesis x2. Dr. Ferguson was at bedside. Pt was given and ECG, Labetalol, Ativan and Zofran and underwent a head CT per MD order. Following head CT, pt was drowsy and B/Ps remained in 150s systolically while resting. Once pt awoke at roughly 1630, systolic B/P increased back to 190/100s and Nicardipine drip was initiated per MD order. Drip was discontinued at 1815. B/Ps currently 150s/100s. Other VS WNL. SPO2 maintained >94% on RA. He c/o a headache today which he rated as high as 4 out of 10, but appears well managed with Tylenol. LS CTA. Telemetry shows NSR. He denied any further nausea after awaking this afternoon and tolerated a regular heart healthy dinner without difficulty. He was up to BR independently to SBA and tolerated it well. Sister and niece were at bedside this evening and appear loving and supportive. Report to FARRAH Rubi.
[2021-12-18] MEDS: carvediloL 6.25 MG TABLET 12.5 MG PO (20:32)
[2021-12-18] MEDS: SODIUM CHLORIDE 0.9 % (FLUSH) 10 ML SYRINGE 5 ML IVF (20:33)
--- NOTE | 2021-12-18 22:30 | PC.NURSE ---
End of Shift ([id number]): Patient pleasant and cooperative. SBP in the 140s-160s. Tele showing NSR. Afebrile. Denies pain. Tolerating regular diet with no further nausea or vomiting.
[2021-12-19] VITALS (58 sets, daily range): BP systolic 133–211; BP diastolic 83–132; PULSE 66–89; RESP 16–18; TEMP 36.3–37.1; O2SAT 92–99
--- NOTE | 2021-12-19 05:57 | PC.NURSE ---
Shift note: BPs overnight 140-170ies, no PRN meds administered. NO c/o nausea, no headache
[2021-12-19] MEDS: carvediloL 6.25 MG TABLET 12.5 MG PO ×2 (07:13→21:14)
[2021-12-19] MEDS: AMLODIPINE 10 MG TABLET PO (07:13)
[2021-12-19 07:19] LABS: Basophils Absolute Auto 0.03 K/uL (0.00-0.30); Basophils Percent Auto 0.3 % (0.0-3.0); Eosinophils Absolute Auto 0.08 K/uL (0.00-0.50); Eosinophils Percent Auto 0.8 % (0.0-7.0); Hematocrit 39.4 % (37.0-53.0); Hemoglobin* 13.6 gm/dL (13.5-17.5); Immature Granulocytes Abs Auto 0.01 K/uL (0.00-0.30); Lymphocytes Absolute Auto 2.02 K/uL (0.90-2.90); Lymphocytes Percent Auto 21.4 % (20-44); Mean Corpuscular HGB Conc 35 gm/dL (32-36); Mean Corpuscular Hemoglobin 30 pg (26-34); Mean Corpuscular Volume 87 fL (80-100); Neutrophils Absolute Auto 6.72 K/uL (1.7-7.0); Neutrophils Percent Auto 71.4 % (42.0-72.0); Platelet Count* 202 K/uL (140-440); Red Blood Count 4.53 m/uL (4.30-5.90); White Blood Count* 9.43 K/uL (4.50-11.00)
[2021-12-19] MEDS: ACETAMINOPHEN 500 MG TABLET PO (07:25)
[2021-12-19 07:31] LABS: Chloride* 103 mmol/L (96-114); Potassium* 3.7 mmol/L (3.6-5.1); Sodium* 136 mmol/L (135-149)
[2021-12-19 07:32] LABS: Slide Review Reflex No
[2021-12-19 07:34] LABS: Blood Urea Nitrogen* 21 mg/dL (5-24); Calcium* 9.4 mg/dL (8.4-10.6); Carbon Dioxide* 25 mmol/L (20-32); Creatinine* 1.9 mg/dL (0.5-1.5); Est. Creatinine Clearance* 50.25; Estimated Glomerular Filt Rate 46 ml/min; Glucose* 108 mg/dL (60-115)
[2021-12-19 07:45] LABS: Troponin I* 0.05 ng/mL (0.01-0.04)
[2021-12-19] MEDS: ASPIRIN 81 MG TAB.CHEW PO (08:32)
[2021-12-19] MEDS: POTASSIUM CHLORIDE 10 MEQ CAPSULE ER 20 MEQ PO (08:32)
[2021-12-19] MEDS: SODIUM CHLORIDE 0.9 % (FLUSH) 10 ML SYRINGE 5 ML IVF ×2 (11:13→21:14)
[2021-12-19] MEDS: lisinopriL 20 MG TABLET PO (12:07)
--- NOTE | 2021-12-19 14:05 | PM.IMPN1 ---
Progress Note: A&P Assessment and plan (1) Hypertensive urgency: Status: Acute Assessment and Plan: - improved - patient has no chest pain, no further headache - on Coreg BID + Amlodipine, adding Lisinopril today (2) Creatinine elevation: Status: Acute Assessment and Plan: - presumably secondary to chronic untreated hypertension (patient has had elevated numbers for a few years, per previous DOT exams) - Discussed risks and benefits of adding on an GENI-inhibitor today to his current regimen, as blood pressure still has suboptimal control. After discussion, patient is agreeable with repeat creatinine tomorrow (3) Elevated troponin I level: Status: Acute Assessment and Plan: - peaked at 0.06 (4) Proteinuria: Status: Acute (5) Vision changes: Status: Acute Assessment and Plan: - much improved, will f/u with [employer] as an outpatient (6) LVH (left ventricular hypertrophy): Problem details: TTE performed 12/18/21: Final Impressions: 1. Normal LV size, severely increased wall thickness (1.9cm anerior septum), normal global systolic function with an estimated EF of 60 - 65%. 2. Severe concentric left ventricular hypertrophy: further evaluation recommended 3. Right ventricular cavity size is normal, global systolic RV function is normal. 4. The aortic valve is sclerotic, no stenosis and trivial regurgitation. 5. The mitral valve is normal, trace mitral regurgitation. 6. No pericardial effusion. Status: Acute Assessment and Plan: - likely 2/2 chronic HTN, needs close outpatient f/u with Cardiology Plan - per above - repeat BMP tomorrow; if BP and Creatinine remain stable, discharge home tomorrow with close outpatient f/u Subjective Date Seen: 12/19/21 Interval history: Patient was on nifedipine drip late afternoon yesterday, this was stopped overnight. Blood pressure this morning was improved, has crept up throughout the day. Patient's vision seems to be at baseline. He continues to deny chest pain or dyspnea. TTE performed 12/18/21: Final Impressions: 1. Normal LV size, severely increased wall thickness (1.9cm anerior septum), normal global systolic function with an estimated EF of 60 - 65%. 2. Severe concentric left ventricular hypertrophy: further evaluation recommended 3. Right ventricular cavity size is normal, global systolic RV function is normal. 4. The aortic valve is sclerotic, no stenosis and trivial regurgitation. 5. The mitral valve is normal, trace mitral regurgitation. 6. No pericardial effusion. Exam Narrative: Exam Narrative: GEN: Alert and oriented, speaking in full sentences HEENT: Normal external ears, EOMIs bilaterally, no scleral icterus CV: RRR, No concerning murmurs, rubs, or gallops R: LCTA bilaterally without concerning wheezing, rales, or rhonchi Ext: wwp, no concerning edema Skin: No concerning skin lesions or rashes on exposed skin Neuro: Nonfocal Psych: Appropriate Const: Vital Signs, click to edit/add: Vital Signs - 24 hr 12/18/21 14:15 12/18/21 14:17 12/18/21 14:30 Temperature Pulse Rate 82 82 82 Pulse Rate [Left P ulse Oximeter] Respiratory Rate Blood Pressure 158/110 H Blood Pressure [Le ft Arm] Pulse Oximetry 93 93 93 Oxygen Delivery Me thod 12/18/21 14:32 12/18/21 15:00 12/18/21 15:00 Temperature 97.2 F L Pulse Rate 81 83 Pulse Rate [Left P ulse Oximeter] 87 Respiratory Rate 18 Blood Pressure 157/105 H Blood Pressure [Le ft Arm] 172/117 H Pulse Oximetry 93 96 Oxygen Delivery Me thod Room Air 12/18/21 14:33 12/18/21 14:45 12/18/21 14:47 Temperature Pulse Rate 83 84 81 Pulse Rate [Left P ulse Oximeter] Respiratory Rate Blood Pressure 173/115 H Blood Pressure [Le ft Arm] Pulse Oximetry 93 94 95 Oxygen Delivery Me thod 12/18/21 15:00 12/18/21 15:02 12/18/21 15:15 Temperature Pulse Rate 82 82 82 Pulse Rate [Left P ulse Oximeter] Respiratory Rate Blood Pressure 160/98 H Blood Pressure [Le ft Arm] Pulse Oximetry 93 92 95 Oxygen Delivery Me thod 12/18/21 15:17 12/18/21 15:18 12/18/21 15:30 Temperature Pulse Rate 83 83 87 Pulse Rate [Left P ulse Oximeter] Respiratory Rate Blood Pressure 160/99 H Blood Pressure [Le ft Arm] Pulse Oximetry 94 93 95 Oxygen Delivery Me thod 12/18/21 15:32 12/18/21 15:45 12/18/21 15:47 Temperature Pulse Rate 87 88 90 Pulse Rate [Left P ulse Oximeter] Respiratory Rate Blood Pressure 172/117 H 182/128 H Blood Pressure [Le ft Arm] Pulse Oximetry 97 97 97 Oxygen Delivery Me thod 12/18/21 15:48 12/18/21 16:00 12/18/21 16:02 Temperature Pulse Rate 86 89 89 Pulse Rate [Left P ulse Oximeter] Respiratory Rate Blood Pressure 195/130 H Blood Pressure [Le ft Arm] Pulse Oximetry 98 96 97 Oxygen Delivery Me thod 12/18/21 16:15 12/18/21 16:17 12/18/21 16:30 Temperature Pulse Rate 90 89 89 Pulse Rate [Left P ulse Oximeter] Respiratory Rate Blood Pressure 190/127 H Blood Pressure [Le ft Arm] Pulse Oximetry 97 98 98 Oxygen Delivery Me thod 12/18/21 16:32 12/18/21 16:45 12/18/21 16:46 Temperature Pulse Rate 88 91 93 Pulse Rate [Left P ulse Oximeter] Respiratory Rate Blood Pressure 176/105 H 165/110 H Blood Pressure [Le ft Arm] Pulse Oximetry 98 97 96 Oxygen Delivery Me thod 12/18/21 17:00 12/18/21 17:01 12/18/21 15:00 Temperature Pulse Rate 91 92 Pulse Rate [Left P ulse Oximeter] 87 Respiratory Rate 18 Blood Pressure 159/89 H Blood Pressure [Le ft Arm] Pulse Oximetry 96 98 Oxygen Delivery Me thod 12/18/21 15:22 12/18/21 17:02 12/18/21 17:15 Temperature Pulse Rate 92 94 Pulse Rate [Left P ulse Oximeter] 87 Respiratory Rate 18 Blood Pressure Blood Pressure [Le ft Arm] Pulse Oximetry 99 98 Oxygen Delivery Me thod 12/18/21 17:16 12/18/21 17:30 12/18/21 17:32 Temperature Pulse Rate 93 102 H 96 Pulse Rate [Left P ulse Oximeter] Respiratory Rate Blood Pressure 158/102 H 170/110 H Blood Pressure [Le ft Arm] Pulse Oximetry 97 98 98 Oxygen Delivery Me thod 12/18/21 17:45 12/18/21 17:46 12/18/21 18:00 Temperature Pulse Rate 99 97 97 Pulse Rate [Left P ulse Oximeter] Respiratory Rate Blood Pressure 160/90 H Blood Pressure [Le ft Arm] Pulse Oximetry 97 96 95 Oxygen Delivery Me thod 12/18/21 18:01 12/18/21 18:15 12/18/21 18:16 Temperature Pulse Rate 96 96 97 Pulse Rate [Left P ulse Oximeter] Respiratory Rate Blood Pressure 142/89 H 139/84 Blood Pressure [Le ft Arm] Pulse Oximetry 98 98 97 Oxygen Delivery Me thod 12/18/21 18:30 12/18/21 18:32 12/18/21 18:45 Temperature Pulse Rate 95 92 87 Pulse Rate [Left P ulse Oximeter] Respiratory Rate Blood Pressure 140/103 H Blood Pressure [Le ft Arm] Pulse Oximetry 97 98 96 Oxygen Delivery Me thod 12/18/21 18:46 12/18/21 19:00 12/18/21 19:30 Temperature 98.1 F Pulse Rate 91 Pulse Rate [Left P ulse Oximeter] 89 88 Respiratory Rate 16 Blood Pressure 149/92 H Blood Pressure [Le ft Arm] 157/106 H 159/107 H Pulse Oximetry 95 98 Oxygen Delivery Me thod Room Air 12/18/21 19:45 12/18/21 19:00 12/18/21 20:00 Temperature Pulse Rate Pulse Rate [Left P ulse Oximeter] 90 90 87 Respiratory Rate 16 Blood Pressure Blood Pressure [Le ft Arm] 156/117 H 158/100 H Pulse Oximetry Oxygen Delivery Me thod 12/18/21 20:08 12/18/21 20:15 12/18/21 20:30 Temperature Pulse Rate 88 Pulse Rate [Left P ulse Oximeter] 85 84 Respiratory Rate Blood Pressure Blood Pressure [Le ft Arm] 169/96 H 164/103 H Pulse Oximetry Oxygen Delivery Me thod 12/18/21 21:00 12/18/21 21:30 12/18/21 22:00 Temperature Pulse Rate Pulse Rate [Left P ulse Oximeter] 84 83 77 Respiratory Rate Blood Pressure Blood Pressure [Le ft Arm] 163/101 H 153/99 H 145/98 H Pulse Oximetry Oxygen Delivery Me thod 12/18/21 23:00 12/18/21 23:00 12/18/21 23:00 Temperature 98.1 F Pulse Rate 73 Pulse Rate [Left P ulse Oximeter] 73 73 Respiratory Rate 16 Blood Pressure Blood Pressure [Le ft Arm] 153/103 H Pulse Oximetry 93 Oxygen Delivery Me thod Room Air 12/19/21 03:00 12/19/21 03:00 12/19/21 05:00 Temperature 98 F Pulse Rate Pulse Rate [Left P ulse Oximeter] 73 74 Respiratory Rate 16 Blood Pressure Blood Pressure [Le ft Arm] 152/107 H 174/110 H Pulse Oximetry 93 Oxygen Delivery Me thod Room Air 12/19/21 07:00 12/19/21 09:00 12/19/21 08:00 Temperature 97.6 F Pulse Rate Pulse Rate [Left P ulse Oximeter] 82 79 81 Respiratory Rate 18 18 Blood Pressure Blood Pressure [Le ft Arm] 211/130 H 165/99 H 153/100 H Pulse Oximetry 99 97 Oxygen Delivery Me thod Room Air Room Air 12/19/21 07:00 12/19/21 07:00 12/19/21 10:00 Temperature Pulse Rate 78 Pulse Rate [Left P ulse Oximeter] 78 Respiratory Rate 18 18 Blood Pressure Blood Pressure [Le ft Arm] 172/107 H Pulse Oximetry 96 Oxygen Delivery Me thod Room Air 12/19/21 11:00 12/19/21 12:09 12/19/21 13:00 Temperature 98.0 F Pulse Rate Pulse Rate [Left P ulse Oximeter] 78 73 85 Respiratory Rate 18 16 18 Blood Pressure Blood Pressure [Le ft Arm] 177/132 H 190/123 H 157/98 H Pulse Oximetry 98 97 96 Oxygen Delivery Me thod Room Air Room Air Room Air Labs Labs: Laboratory Results - last 24 hr 12/19/21 12/19/21 06:58 06:58 WBC 9.43 RBC 4.53 Hgb 13.6 Hct 39.4 MCV 87 MCH 30 MCHC 35 RDW Coeff of Avril 13.0 Plt Count 202 Neut % (Auto) 71.4 Lymph % (Auto) 21.4 Keith % (Auto) 6.0 Eos % (Auto) 0.8 Baso % (Auto) 0.3 Neut # (Auto) 6.72 Lymph # (Auto) 2.02 Keith # (Auto) 0.60 Eos # (Auto) 0.08 Baso # (Auto) 0.03 Abs Immat Gran (auto) 0.01 Sodium 136 Potassium 3.7 Chloride 103 Carbon Dioxide 25 BUN 21 Creatinine 1.9 H Estimated Creat Clear 50.25 Estimated GFR 46 Glucose 108 Calcium 9.4 Troponin I 0.05 H
[2021-12-19] MEDS: 0.9 % SODIUM CHLORIDE 1000 ml 1,000 ML 125 ML IV (15:39)
--- NOTE | 2021-12-19 17:47 | PC.NURSE ---
End of shift-- Pleasant and cooperative, alert and oriented pt. Pt remains hypertensive, though B/Ps were greatly improved since yesterday and appear to be well controlled with oral medications at this time. Most recent B/P 158/107. Other VS WNL. SPO2 maintained >94 on RA. He c/o a very mild headache this morning, but has denied any other pain. Telemetry shows NSR. LS CTA. BS+ x4 and pt stated a normal BM this morning. He denied any nausea and 100% of 3 heart healthy meals today. He was up to the BR and ambulating in room independently and tolerated it well. He voided >1800ml of clear, yellow urine. Report to oncoming shift.
[2021-12-20] VITALS (8 sets, daily range): BP systolic 133–163; BP diastolic 90–97; PULSE 65–86; RESP 16–18; TEMP 36.2–36.5; O2SAT 95–99
--- NOTE | 2021-12-20 05:14 | PC.NURSE ---
Shift note: The pt has been very pleasant and cooperative. He has been denying chest pain, short of breath, palpitation, dizzy or lightheaded . BP has been improving a lot. The pt has been drinking a lot water; a lot of urine out put; see charting. Tele has been showing NSR with T wave abnormality. The pt appeared without any distress throughout the night.
[2021-12-20 07:37] LABS: Chloride* 106 mmol/L (96-114); Potassium* 4.2 mmol/L (3.6-5.1); Sodium* 136 mmol/L (135-149)
[2021-12-20 07:40] LABS: Blood Urea Nitrogen* 25 mg/dL (5-24); Carbon Dioxide* 23 mmol/L (20-32); Creatinine* 1.7 mg/dL (0.5-1.5); Est. Creatinine Clearance* 56.16; Estimated Glomerular Filt Rate 53 ml/min
[2021-12-20 07:41] LABS: Calcium* 8.5 mg/dL (8.4-10.6); Glucose* 99 mg/dL (60-115)
[2021-12-20] MEDS: POTASSIUM CHLORIDE 10 MEQ CAPSULE ER 20 MEQ PO (08:33)
[2021-12-20] MEDS: carvediloL 6.25 MG TABLET 12.5 MG PO (08:33)
[2021-12-20] MEDS: lisinopriL 20 MG TABLET PO (08:33)
[2021-12-20] MEDS: ASPIRIN 81 MG TAB.CHEW PO (08:33)
[2021-12-20] MEDS: AMLODIPINE 10 MG TABLET PO (08:33)
--- NOTE | 2021-12-20 10:53 | PC.NURSE ---
Discharge-- Pleasant and cooperative, alert and oriented patient was discharged home ambulatory with mother at approximately 1045. VSS and pt is afebrile. B/P this morning 163/97. SpO2 maintained >94% on RA. He denied any pain today. Telemetry showed NSR. LS CTA. He denied nausea and tolerated a regular diet without difficulty. Discharge education was provided including diagnosis info, symptoms to report, medications and follow up plan. No further questions asked. SL was removed with tip intact.
--- NOTE | 2021-12-20 16:48 | PM.DS1 ---
DS: Providers Provider Time Seen by Provider: 07:30 Date Seen: 12/20/21 Date of admission: 12/17/21 21:01 Primary care physician: Moises Mckoy MD Admitting Clinician: Panchito Young MD Consults: 12/18/21 07:28 Consult to Nutrition [CONS] Routine Comment: Reason for consult:: Nutritional Consult Comment: HTN Attending Physician on discharge: Ash Hernandez MD Date of Discharge: 12/20/21 DS: Diagnosis Discharge Diagnosis (1) Vision changes: Status: Acute (2) Hypertensive urgency: Status: Acute (3) Proteinuria: Status: Acute (4) Creatinine elevation: Status: Acute (5) CKD (chronic kidney disease) stage 3, GFR 30-59 ml/min: Status: Acute (6) Elevated troponin I level: Status: Acute (7) LVH (left ventricular hypertrophy): Status: Acute Problem details: TTE performed 12/18/21: Final Impressions: 1. Normal LV size, severely increased wall thickness (1.9cm anerior septum), normal global systolic function with an estimated EF of 60 - 65%. 2. Severe concentric left ventricular hypertrophy: further evaluation recommended 3. Right ventricular cavity size is normal, global systolic RV function is normal. 4. The aortic valve is sclerotic, no stenosis and trivial regurgitation. 5. The mitral valve is normal, trace mitral regurgitation. 6. No pericardial effusion. (8) Alcohol abuse: Status: Acute Problem details: Endorses 3-4 beers per night. DS: Summary Hospital Course Hospital Course: Yung Law is a 36 year old male presenting for evaluation of hypertensive urgency. The patient states he has history of HTN but not on antihypertensives. He presented to ED today for evaluation of headache and blurry vision. He was seen by Optometry earlier and noted to have possible retinal hemorrhage. He denied chest pain, sob, nausea, vomiting, abdominal pain. Denies illicit drug use. In the ED his SBP was noted to be in 250s. ED workup revealed: EKG showed NSR, initial trop 0.05, repeat 0.06. Notable labs included Cr 2.0. Renal US showed No renal stones or hydronephrosis, as questioned. Possible debris in the bladder which can be seen in urinary tract infection. Recommend correlation with urinalysis. CXR showed no acute findings. His case was discussed with Nephrology. He was started on hydralazine and labetalol and admitted for further evaluation. The patient endorses 3-4 beers per night. He denies use of NSAIDs. With time we are able to transition him from IV antihypertensive medications to oral antihypertensive medications. At time of discharge he is on amlodipine, lisinopril, and carvedilol. Creatinine slowly decreased down to 1.7. Vision did not improve or worsen. Patient received education from dietitian. Status at Discharge Functional status at discharge: independent ambulation Overall status at discharge: patient is back to baseline Time Spent with Patient Time attestation: Total time spent providing and/or coordinating discharge services: Time spent: Greater than 30 minutes Exam Narrative: Exam Narrative: GEN: Alert and oriented, speaking in full sentences HEENT: Normal external ears, EOMIs bilaterally, no scleral icterus CV: RRR, No concerning murmurs, rubs, or gallops R: LCTA bilaterally without concerning wheezing, rales, or rhonchi Ext: wwp, no concerning edema Skin: No concerning skin lesions or rashes on exposed skin Neuro: Nonfocal Psych: Appropriate Const: Vital Signs, click to edit/add: Vital Signs - 24 hr 12/19/21 17:21 12/19/21 19:40 12/19/21 23:20 Temperature 97.3 F L Pulse Rate Pulse Rate [Left P ulse Oximeter] 71 76 67 Respiratory Rate 18 18 18 Blood Pressure Blood Pressure [Le ft Arm] 158/107 H 148/94 H Pulse Oximetry 97 97 Oxygen Delivery Ny thod Room Air Room Air 12/19/21 23:20 12/19/21 23:38 12/20/21 04:54 Temperature 97.8 F 97.7 F Pulse Rate 66 Pulse Rate [Left P ulse Oximeter] 76 72 Respiratory Rate 18 18 Blood Pressure Blood Pressure [Le ft Arm] 133/83 133/90 H Pulse Oximetry 94 95 Oxygen Delivery Ny thod Room Air Room Air 12/20/21 07:00 12/20/21 08:25 12/20/21 07:00 Temperature 97.2 F L Pulse Rate 86 Pulse Rate [Left P ulse Oximeter] 79 79 Respiratory Rate 16 16 Blood Pressure Blood Pressure [Le ft Arm] 163/97 H Pulse Oximetry [facility] 12/20/21 10:17 12/19/21 17:22 12/19/21 17:23 Temperature 97.2 F L Pulse Rate 86 72 Pulse Rate [Left P ulse Oximeter] Respiratory Rate 16 Blood Pressure 149/92 H 158/107 H Blood Pressure [Le ft Arm] Pulse Oximetry 96 Oxygen Delivery Me thod 12/19/21 19:42 12/19/21 23:20 12/19/21 23:21 Temperature Pulse Rate 67 Pulse Rate [Left P ulse Oximeter] Respiratory Rate Blood Pressure 148/94 H 133/83 Blood Pressure [Le ft Arm] Pulse Oximetry 94 Oxygen Delivery Me thod 12/20/21 04:44 12/20/21 04:45 12/20/21 08:31 Temperature Pulse Rate 67 65 74 Pulse Rate [Left P ulse Oximeter] Respiratory Rate Blood Pressure 133/90 H Blood Pressure [Le ft Arm] Pulse Oximetry 96 97 Oxygen Delivery Me thod 12/20/21 08:32 Temperature Pulse Rate 77 Pulse Rate [Left P ulse Oximeter] Respiratory Rate Blood Pressure 163/97 H Blood Pressure [Le ft Arm] Pulse Oximetry 98 Oxygen Delivery Me thod Documenting provider has reviewed patient's vital signs: yes DS: Data Data Completed and Pending Labs on day of discharge: Labs from last 24 hours 12/20/21 06:50 Sodium 136 Potassium 4.2 Chloride 106 Carbon Dioxide 23 BUN 25 H Creatinine 1.7 H Estimated Creat Clear 56.16 Estimated GFR 53 Glucose 99 Calcium 8.5 Additional Comments Additional comments: Electrocardiogram demonstrates normal sinus rhythm with left ventricular hypertrophy, T-wave abnormality, QTC prolonged at 464 milliseconds. Discharge Plan Discharge Disposition: Home, Self-Care Date of Admission: 12/17/21 21:01 Primary Care Provider: Moises Mckoy Condition: Improved Anticipated Discharge Date/Time: 12/20/21 11:00 Discharge Medications: New carvedilol 6.25 mg Tablet 12.5 mg PO BID PRN30 Days Qty: 60 0RF lisinopril 20 mg Tablet 20 mg PO DAILY 30 Days Qty: 30 0RF amlodipine 10 mg Tablet 10 mg PO DAILY Qty: 30 0RF Discharge Orders: Discharge Order (Routine); Ordered 12/20/21 Ordered By: Ash Hernandez Patient Education: Lisinopril (By mouth), Amlodipine (By mouth), Carvedilol (By mouth), Low-Sodium Diet (GEN), Hypertensive Crisis (DC), Hypertension (GEN) Additional Instructions: 1. Follow-up with eye doctor in 5-10 days; 2. Return to clinic or emergency department sooner if needed. Activity Level: No Restrictions and Activity as Tolerated Discharge Diet: 2 gm Sodium Follow Up Appointments: Moises Mckoy MD [Primary Care Provider] - 12/24/21 9:45 am (Hospital follow-up/[facility]) Forms: [employer] Info Instructions
== END 2021-12-20 10:45 | disposition home or self-care (01) | DRG 199 ==
LOC: ED 20:21 → MEDSURG 20:33
PROVIDERS: Family Medicine; Admitting Provider Hospitalist; Emergency Provider Family Medicine; PCP Family Medicine; Visit Provider Hospitalist
DX: I16.0 Hypertensive urgency (principal); N17.9 Acute kidney failure, unspecified; I13.10 Hypertensive heart and chronic kidney disease without heart failure, with stage 1 through stage 4 chronic kidney disease, or unspecified chronic kidney disease; N18.30 Chronic kidney disease, stage 3 unspecified; R80.9 Proteinuria, unspecified; H53.8 Other visual disturbances; F98.8 Other specified behavioral and emotional disorders with onset usually occurring in childhood and adolescence
CPT/HCPCS: 36415; 70450; 70496; 70498; 71045; 76775; 80048; 80053; 81001; 83036; 84443; 84484; 85025; 87635; 93005; 93306; 99284; 99285; 99291; 99292; A9270; J0360; J2060; J2405; J7030; J7050; Q9967

== ENCOUNTER 2022-01-11 08:35 | Outpatient (CLI) | payer BC, SELFPAY ==
[2022-01-11 14:33] LABS: Chloride* 105 mmol/L (96-114); Potassium* 5.7 mmol/L (3.6-5.1); Sodium* 137 mmol/L (135-149)
[2022-01-11 14:36] LABS: Blood Urea Nitrogen* 29 mg/dL (5-24); Carbon Dioxide* 24 mmol/L (20-32); Cholesterol* 211 mg/dL (90-199); Creatinine* 1.9 mg/dL (0.5-1.5); Estimated Glomerular Filt Rate 46 ml/min; Glucose* 99 mg/dL (60-115)
[2022-01-11 14:37] LABS: Calcium* 9.6 mg/dL (8.4-10.6); HDL Cholesterol* 35 mg/dL (>=40); LDL Cholesterol Calculated 111 mg/dL (<100); Triglycerides* 327 mg/dL (40-149)
== END 2022-01-11 08:36 | disposition home or self-care (01) ==
PROVIDERS: PCP Family Medicine; Visit Provider Family Medicine
DX: I10 Essential (primary) hypertension (principal); H53.9 Unspecified visual disturbance; R80.9 Proteinuria, unspecified; Z13.6 Encounter for screening for cardiovascular disorders
CPT/HCPCS: 80048; 80061; 86617; 86618

== ENCOUNTER 2022-02-15 08:48 | Outpatient (CLI) | payer BC, SELFPAY ==
[2022-02-15 13:57] LABS: Chloride* 105 mmol/L (96-114); Sodium* 138 mmol/L (135-149)
[2022-02-15 14:00] LABS: Blood Urea Nitrogen* 34 mg/dL (5-24); Carbon Dioxide* 27 mmol/L (20-32); Estimated Glomerular Filt Rate 44 ml/min; Glucose* 98 mg/dL (60-115)
[2022-02-15 14:01] LABS: Calcium* 9.4 mg/dL (8.4-10.6)
== END 2022-02-15 08:49 | disposition home or self-care (01) ==
LOC: FBOREF 08:50
PROVIDERS: PCP Family Medicine; Visit Provider Family Medicine
DX: I10 Essential (primary) hypertension (principal)
CPT/HCPCS: 80048

== ENCOUNTER 2023-01-10 08:52 | Outpatient (CLI) | payer BC, SELFPAY | END 2023-01-10 08:53 | disposition home or self-care (01) | PROVIDERS: PCP Family Medicine; Visit Provider Family Medicine | DX: I10 Essential (primary) hypertension (principal) | CPT/HCPCS: 80048; 80061 ==

== ENCOUNTER 2024-01-02 09:48 | Outpatient (CLI) | payer BC, SELFPAY | END 2024-01-02 09:49 | disposition home or self-care (01) | PROVIDERS: PCP Family Medicine; Visit Provider Family Medicine | DX: I10 Essential (primary) hypertension (principal); N18.30 Chronic kidney disease, stage 3 unspecified | CPT/HCPCS: 80048; 80061 ==

== ENCOUNTER 2024-12-31 09:23 | Outpatient (CLI) | payer BC, SELFPAY | END 2024-12-31 09:24 | disposition home or self-care (01) | PROVIDERS: PCP Family Medicine; Visit Provider Family Medicine | DX: I10 Essential (primary) hypertension (principal) | CPT/HCPCS: 80048; 80061; 85025 ==